=== PATIENT | female | born 1970 | race Caucasian/White ===

== ENCOUNTER 2024-01-02 04:08 | Day surgery (SDC) | payer OTHER ==
[2024-01-02] VITALS (261 sets, daily range): BP systolic 105–202; BP diastolic 52–146
[~2024-01-02] VITALS: Ht 160 cm; Wt 76.7 kg
[2024-01-02] MEDS ORDERED: cloNIDine HCL 0.1 MG/TAB PO PRN (07:30)
[2024-01-02] MEDS ORDERED: diazePAM 5 MG/TAB PO PRN ×2 (07:30→08:30)
[2024-01-02] MEDS ORDERED: CYANOCOBALAMIN 500 MCG/TAB ( B12) PO PRN (07:30)
[2024-01-02] MEDS ORDERED: SCOPOLAMINE 1.5 MG DIS TD PRN (07:30)
[2024-01-02] MEDS ORDERED: PANTOPRAZOLE SODIUM Sesquihydr 40 MG/TAB PO PRN (07:30)
[2024-01-02] MEDS ORDERED: LACTATED RINGER'S 1,000 ML IV PRN ×3 (07:30→19:00)
[2024-01-02] MEDS ORDERED: ALBUTEROL SULFATE 2.5 MG VIAL IN PRN (07:30)
[2024-01-02] MEDS ORDERED: FAMOTIDINE 20 MG/TAB PO PRN (07:30)
[2024-01-02] MEDS ORDERED: ONDANSETRON 4 MG/TAB ODT ONE (07:39)
[2024-01-02] MEDS ORDERED: diazePAM 5 MG/TAB PO ONE (07:55)
[2024-01-02] MEDS ORDERED: ONDANSETRON 4 MG/TAB ODT PO ONE (07:55)
[2024-01-02] MEDS ORDERED: ASCORBIC ACID 4,000 MG in SODIUM CHLORIDE 0.9% 1,000 ML IV SCH (08:00)
[2024-01-02 08:33] LABS: BASO% 0.3 % (0-3); EOS% 0.4 % (0-8); HEMATOCRIT 40.8 % (37.0-47.0); HEMOGLOBIN 13.6 g/dl (12.0-16.0); IMMATURE GRANULOCYTES 0.3 % (0.0-5.0); LYMPH% 10.7 % (15-41); MEAN CELL VOLUME 88.1 fL CALC (80.0-100.0); MEAN CORPUSCULAR HGB 29.4 pG CALC (26.0-32.0); MEAN CORPUSCULAR HGB CONC 33.3 g/dL CAL (32.0-36.0); MONO% 4.3 % (2-13); NEUT# 8.9 thou/uL (2.00-7.15); RED BLOOD COUNT 4.63 mill/uL (4.20-5.60)
[2024-01-02 08:50] LABS: ALBUMIN 4.2 g/dL (3.2-5.0); BILIRUBIN, TOTAL 0.7 mg/dL (0.02-1.3); CREATININE 0.5 mg/dL (0.5-1.0); POTASSIUM 4.1 mmol/l (3.5-5.1); TOTAL PROTEIN 7.3 g/dL (6.3-8.2)
[2024-01-02] MEDS ORDERED: VENTOLIN HFA108 MCG (08:52)
[2024-01-02] MEDS ORDERED: PROPOFOL 100 ML IV PRN (09:50)
[2024-01-02] MEDS ORDERED: ONDANSETRON HCl 4 MG/2 ML SDV IV PRN ×3 (09:50→19:00)
[2024-01-02] MEDS ORDERED: LIDOCAINE HCL 1% (10MG/ML) 100 MG/10 ML MDV IV PRN (09:50)
[2024-01-02] MEDS ORDERED: THIAMINE HCL 100 MG/ML 2ML VIAL IV PRN (09:50)
[2024-01-02] MEDS ORDERED: MIDAZOLAM HCL 2 MG/2 ML VIAL IV PRN (09:50)
[2024-01-02] MEDS ORDERED: MAGNESIUM SULFATE HEPTAHYDRATE 100 ML IV PRN (09:50)
[2024-01-02] MEDS ORDERED: DEXAMETHASONE SODIUM PHOSPHATE PF 10 MG/ML SDV IV PRN ×2 (09:50→19:00)
[2024-01-02] MEDS ORDERED: SUCCINYLCHOLINE CHLORIDE 20 MG/ML 10ML VIAL IV PRN (09:50)
[2024-01-02] MEDS ORDERED: STERILE WATER FOR IRRIGATION 1,000 ML BTL IR PRN (09:50)
[2024-01-02] MEDS ORDERED: DiphenhydrAMINE HCL 50 MG/ML SDV IV PRN (09:50)
[2024-01-02] MEDS ORDERED: LIDOCAINE HCL 1% (10MG/ML) 100 MG/10 ML MDV VT PRN ×2 (09:50)
[2024-01-02] MEDS ORDERED: POTASSIUM CHLORIDE 10 MEQ/50 ML BAG IV PRN (09:50)
[2024-01-02] MEDS ORDERED: PROPOFOL 10 MG/ML 100ML VIAL IV PRN (09:50)
[2024-01-02] MEDS ORDERED: cloNIDine HCL 0.1 MG/TAB VT PRN (09:50)
[2024-01-02] MEDS ORDERED: OCTREOTIDE ACETATE 100 MCG/VIAL SDV SC PRN (09:50)
[2024-01-02] MEDS ORDERED: cloNIDine HYDROCHLORIDE 100 MCG/ML 10 ML INJ IV PRN (09:50)
[2024-01-02] MEDS ORDERED: diazePAM 5 MG/TAB VT PRN (09:50)
[2024-01-02] MEDS ORDERED: NALTREXONE HCL 50 MG/TAB VT PRN (09:50)
[2024-01-02] MEDS ORDERED: ROCURONIUM BROMIDE 10 MG/ML 5ML VIAL IV PRN (09:50)
[2024-01-02] MEDS ORDERED: LABETALOL HCL 20 MG/ 4 ML CARTRG IV ONE (11:40)
[2024-01-02] MEDS ORDERED: KLONOPIN2 MG PO (15:21)
[2024-01-02] MEDS ORDERED: NALTREXONE50 MG PO (15:21)
[2024-01-02] MEDS ORDERED: CLONIDINE0.1 MG PO (15:21)
[2024-01-02] MEDS ORDERED: ACETAMINOPHEN 500 MG TAB PO PRN (19:00)
[2024-01-02] MEDS ORDERED: HALOPERIDOL LACTATE 5 MG/ML SDV IV PRN (19:00)
[2024-01-02] MEDS ORDERED: LORazepam 2 MG/ML IV PRN ×2 (19:00)
[2024-01-02] MEDS ORDERED: ACETAMINOPHEN 1,000 MG/100 ML VIAL IV PRN (19:00)
[2024-01-02] MEDS ORDERED: KETOROLAC TROMETHAMINE 30 MG/ML SDV IV PRN (19:00)
[2024-01-02] MEDS ORDERED: PROMETHAZINE HCL 12.5 MG in SODIUM CHLORIDE 0.9% 50 ML IV PRN (19:00)
[2024-01-02] MEDS ORDERED: PROMETHAZINE HCL 25 MG in SODIUM CHLORIDE 0.9% 50 ML IV PRN (19:00)
[2024-01-02] MEDS ORDERED: PATIENT' OWN MED CONTROLLED 1 EA DOSE IV PRN (21:00)
[2024-01-02] MEDS ORDERED: cloNIDine HCL 0.1 MG/TAB PO SCH (23:00)
[2024-01-02] MEDS ORDERED: clonazePAM 1 MG/TAB PO PRN (23:00)
[2024-01-02] MEDS ORDERED: clonazePAM 1 MG/TAB PO SCH (23:00)
[2024-01-03] VITALS (18 sets, daily range): BP systolic 140–179; BP diastolic 67–138
[2024-01-03] MEDS ORDERED: cloNIDine HCL 0.1 MG/TAB PO PRN (04:00)
[2024-01-03] MEDS ORDERED: clonazePAM 1 MG/TAB PO PRN ×2 (04:00→08:00)
[2024-01-03] MEDS ORDERED: NALTREXONE HCL 50 MG/TAB PO SCH ×2 (08:00→13:00)
[2024-01-03] MEDS ORDERED: PANTOPRAZOLE SODIUM Sesquihydr 40 MG/TAB PO SCH (08:00)
[2024-01-03] MEDS ORDERED: ACETAMINOPHEN 325 MG/TAB PO SCH (08:00)
[2024-01-03] MEDS ORDERED: cloNIDine HCL 0.1 MG/TAB PO SCH ×3 (08:00→21:00)
[2024-01-03] MEDS ORDERED: Cholecalciferol 2,000 UNIT/TAB PO PRN ×3 (09:00→16:15)
[2024-01-03] MEDS ORDERED: ACETAMINOPHEN 500 MG TAB PO PRN ×4 (09:00→17:15)
[2024-01-03] MEDS ORDERED: MAGNESIUM OXIDE 400 MG/TAB PO PRN ×3 (09:00→16:15)
[2024-01-03 09:01] LABS: BASO% 0.1 % (0-3); EOS% 0.1 % (0-8); HEMATOCRIT 37.7 % (37.0-47.0); HEMOGLOBIN 12.4 g/dl (12.0-16.0); IMMATURE GRANULOCYTES 0.3 % (0.0-5.0); LYMPH% 6.9 % (15-41); MEAN CELL VOLUME 89.1 fL CALC (80.0-100.0); MEAN CORPUSCULAR HGB 29.3 pG CALC (26.0-32.0); MEAN CORPUSCULAR HGB CONC 32.9 g/dL CAL (32.0-36.0); MONO% 6.6 % (2-13); NEUT# 14.92 thou/uL (2.00-7.15); RED BLOOD COUNT 4.23 mill/uL (4.20-5.60); RED CELL DISTRI WIDTH 13.4 % (11.5-15.5)
[2024-01-03 09:08] LABS: ALBUMIN 3.7 g/dL (3.2-5.0); CREATININE 0.6 mg/dL (0.5-1.0); MAGNESIUM 2.1 mg/dL (1.6-2.3); TOTAL PROTEIN 6.4 g/dL (6.3-8.2)
[2024-01-03] MEDS ORDERED: hydrALAZINE HCL 20 MG/ML VIAL(1 ML) IV SCH (09:15)
[2024-01-03] MEDS ORDERED: LACTATED RINGER'S 1,000 ML IV PRN (17:15)
[2024-01-03] MEDS ORDERED: BISMUTH SUBSALICYLATE 262 MG CHW PO PRN (17:20)
[2024-01-03] MEDS ORDERED: MAGNESIUM OXIDE 400 MG/TAB PO SCH (17:30)
[2024-01-03] MEDS ORDERED: KETOROLAC TROMETHAMINE 15 MG/ML SDV IV SCH (18:00)
[2024-01-04] MEDS ORDERED: ALUM & MAG HYDROX-SIMETHICONE 30 ML PO PRN (01:35)
[2024-01-04 04:10] VITALS: BP 151/82
[2024-01-04 04:53] LABS: BASO% 0.1 % (0-3); HEMATOCRIT 34.9 % (37.0-47.0); HEMOGLOBIN 11.7 g/dl (12.0-16.0); IMMATURE GRANULOCYTES 0.2 % (0.0-5.0); LYMPH% 7.3 % (15-41); MEAN CELL VOLUME 90.2 fL CALC (80.0-100.0); MEAN CORPUSCULAR HGB 30.2 pG CALC (26.0-32.0); MEAN CORPUSCULAR HGB CONC 33.5 g/dL CAL (32.0-36.0); MONO% 5.8 % (2-13); NEUT% 86.6 % (42-76); RED BLOOD COUNT 3.87 mill/uL (4.20-5.60); RED CELL DISTRI WIDTH 13.9 % (11.5-15.5)
[2024-01-04 05:05] LABS: ALBUMIN 3.4 g/dL (3.2-5.0); BILIRUBIN, TOTAL 0.8 mg/dL (0.02-1.3); CREATININE 0.6 mg/dL (0.5-1.0); MAGNESIUM 1.8 mg/dL (1.6-2.3); TOTAL PROTEIN 6.1 g/dL (6.3-8.2)
[2024-01-04 05:13] LABS: POTASSIUM 2.9 mmol/l (3.5-5.1)
[2024-01-04] MEDS ORDERED: MAGNESIUM SULFATE HEPTAHYDRATE 50 ML IV SCH (08:00)
[2024-01-04] MEDS ORDERED: POTASSIUM CHLORIDE 20 MEQ/TAB PO SCH (08:00)
[2024-01-04] MEDS ORDERED: NALTREXONE HCL 50 MG/TAB PO SCH (08:00)
== END 2024-01-04 15:35 | disposition home or self-care (01) | DRG 897 ==
LOC: MS2 04:08 → ANR 04:08 → ICU 19:40 → MS2 01-03 09:08 → ANR 01-04 15:35
PROVIDERS: ATTEND Anesthesiology
DX: F11.20 Opioid dependence, uncomplicated (principal)
CPT/HCPCS: J1100; J2060; J2354; J3475; J3490